=== PATIENT | female | born 1940 | race African-American/Black ===

== ENCOUNTER → 2017-05-17 | Outpatient (CLI) | payer OTHER ==
[~2017-05-17] MED LIST: ACETAMINOPHEN-120 ML PO; ACTICIN 5% CREA60 G1; ADULT LOW DOSE81 MG PO; CALCITRIOL0.25 MCG PO; CATAPRES PO; CATAPRES-TTS 10.1 MG PO; DOXYCYCLINE 10100 MG PO; EUCERIN CREME57 GM; HYDROCODONE-APA10 ML PO; IRON325 PO; LEVOTHYROXIN0.125 M1 PO; LIDOCAINE VISC100 M1; LISINOPRIL-HCT1 EAC1 PO; METHOTREXATE 22.5 MG PO; MOBIC15 MG PO; MUCINEX600 MG PO; NORCO 5-325 TA1 EACH PO; NORTHYX5 MG PO; REMICADE 1100 MG/VIA IV; SIMVASTATIN40 MG PO; TUMS PO; VALIUM5 MG PO; VENTOLIN17 GM INH; VITAMIN D 5050000 I1; ZPAK PO; [UNRECOGNIZED DRUG - OTHER]
--- NOTE | ~2017-05-17 | 2DMMODE ---
[facility] [address] [place] [address] 2 D/M-MODE ECHOCARDIOGRAM Name: MEGANKEVIN L Room #: REG [facility]#: [id number] Admission: 05/17/17 Attend Phys: Sushil Iraheta Discharge: Date of : 42 Date of Service: 05/17/17 1327 Report #: [id number] THIS REPORT FOR: //name// APPROVED REPORT Study performed: 05/17/2017 11:56:53 EXAM: Comprehensive 2D, Doppler, and color-flow Echocardiogram Patient Location: Out-Patient Status: routine Other Information Study Quality: Good Indications Palpitations 2D Dimensions RVDd: 30.61 mm LVEF(%): 66.79 (>50%) IVSd: 11.50 (7-11mm) LVOT Diam: 20.08 (18-24mm) LVDd: 40.59 mm PWd: 10.46 (7-11mm) Ascending Ao: 29.52 (22-36mm) LVDs: 25.77 (25-40mm) Aortic Root: 33.47 mm IVC: 1.70 mm Manriquez's LVEF: 66.79 % Volumes Left Atrial Volume (Systole) Single Plane 4CH: 73.09 mL Single Plane 2CH: 52.24 mL LA ESV Index: 32.00 mL/m2 Aortic Valve AoV Peak Sammy.: 1.56 m/s AO Peak Gr.: 9.67 mmHg LVOT Max P.53 mmHg LVOT Max V: 1.46 m/s CHARLINE Vmax: 2.97 cm2 Mitral Valve E/A Ratio: 0.6 MV Decel. Time: 393.31 ms MV E Max Sammy.: 0.50 m/s MV A Sammy.: 0.83 m/s MV PHT: 114.06 ms IVRT: 115.34 ms [facility] [address] 2 D/M-MODE ECHOCARDIOGRAM Name: KEVIN GUZMAN Room #: [facility]#: [id number] Admission: 05/17/17 Attend Phys: [facility] Discharge: Date of : 42 Date of Service: 05/17/17 1327 Report #: [id number] Pulmonary Valve PV Peak Sammy.: 0.73 m/s PV Peak Gr.: 2.11 mmHg Pulmonary Vein P Vein S: 0.68 m/s P Vein A: 0.37 m/s P Vein D: 0.26 m/s P Vein A Dur.: 133.8 msec P Vein S/D Ratio: 2.62 Tricuspid Valve TR Peak Sammy.: 2.47 m/s RAP Estimate: 5.00 mmHg TR Peak Gr.: 24.40 mmHg PA Pressure: 29.00 mmHg Left Ventricle The left ventricle is normal size. There is normal LV segmental wall motion. Mild concentric left ventricular hypertrophy. The left ventricular systolic function is normal. The left ventricular ejection fraction is within the normal range. LVEF is 60%. Grade I - abnormal relaxation pattern. Right Ventricle The right ventricle is normal size. The right ventricular systolic function is normal. Atria The left atrium size is normal. The right atrium size is normal. Aortic Valve Aortic valve is calcified. No aortic regurgitation is present. There is no aortic valvular stenosis. Mitral Valve The mitral valve is normal in structure. Trace mitral regurgitation. No evidence of mitral valve stenosis. Tricuspid Valve The tricuspid valve is normal in structure. There is trace tricuspid regurgitation. The right atrial pressure is estimated at 5 mmHg. There is no pulmonary hypertension with an estimated PAP of 29 mmHg. Pulmonic Valve The pulmonary valve is normal in structure. Trace pulmonic regurgitation. [facility] [address] [place] [address] 2 D/M-MODE ECHOCARDIOGRAM Name: KEVIN GUZMAN Branden Room #: REG CL [facility]#: [id number] Admission: 05/17/17 Attend Phys: Sushil Iraheta Discharge: Date of : 42 Date of Service: 05/17/17 1327 Report #: [id number] Great Vessels The aortic root is normal in size. IVC is normal in size and collapses >50% with inspiration. Pericardium There is no pericardial effusion. <Conclusion> The left ventricle is normal size. Mild concentric left ventricular hypertrophy. The left ventricular systolic function is normal. Grade I - abnormal relaxation pattern. The right ventricle is normal size. The left atrium size is normal. Aortic valve is calcified. There is no aortic valvular stenosis. Trace mitral regurgitation. There is no pulmonary hypertension with an estimated PAP of 29 mmHg. <ELECTRONICALLY SIGNED> By: Kalia Cruz MD 05/17/17 1327 26 26 Kalia Cruz MD /INF
== END ==
LOC: NUC 05-07 09:42
DX: I48.3 Typical atrial flutter (principal)

== ENCOUNTER → 2018-04-17 | Outpatient (CLI) | payer OTHER | LOC: RAD 11:21 | DX: Z12.31 Encounter for screening mammogram for malignant neoplasm of breast (principal) ==

== ENCOUNTER 2018-09-15 06:34 | Outpatient (CLI) | payer OTHER ==
[~2018-09-15] VITALS: Ht 172.7 cm; Wt 96.0 kg
[2018-09-15 07:06] VITALS: BP 177/107
[2018-09-15 07:13] LABS: BASOPHILS 0.8 % (0.0-2.0); EOSINOPHILS 3.6 % (0.0-3.0); HEMATOCRIT 38.8 % (37.0-47.0); HEMOGLOBIN 12.9 gm/dL (12.0-15.0); LYMPHOCYTES 31.4 % (24.0-44.0); MCH 30.1 pg (26.0-34.0); MCHC 33.1 g/dL (28.0-37.0); MCV 90.8 fL (80.0-100.0); MONOCYTES 6.6 % (1.0-8.0); PLATELET COUNT 117 thou/uL (150-400); POLYS 57.6 % (36.0-66.0); RBC 4.28 mil/uL (4.20-5.00); RDW 14.7 % (10.5-14.5); WBC 5.3 thou/uL (4.0-11.0)
[2018-09-15 07:22] LABS: CALCIUM 9.4 mg/dL (8.5-10.1); CREATININE 1.2 mg/dL (0.6-1.0)
[2018-09-15 07:27] LABS: ALBUMIN 3.4 g/dL (3.4-5.0); TOTAL BILIRUBIN 0.5 mg/dL (<0.1-1.0); TOTAL PROTEIN 8.4 g/dL (6.4-8.2)
[2018-09-15 07:32] LABS: APTT 27.6 Seconds (24.5-32.8); PROTIME 10.8 Seconds (9.3-11.4)
[2018-09-15 16:45] VITALS: BP 179/88
[2018-09-15 17:45] VITALS: BP 180/89
[2018-09-15 18:45] VITALS: BP 180/89
[2018-09-15 19:44] VITALS: BP 141/71
[2018-09-16 04:36] VITALS: BP 179/95
[2018-09-16 07:21] VITALS: BP 184/131
[2018-09-16 07:28] VITALS: BP 178/91
[2018-09-16] MEDS ORDERED: AMLODIPINE BESYL5 M1 PO (09:45)
[2018-09-16 10:44] VITALS: BP 178/91
== END 2018-09-16 11:02 | disposition home or self-care (01) ==
LOC: CATH 06:34 → 2N 16:00 → ENTRNSPT 09-16 10:51 → EDTRNSPTSTS 09-16 10:54 → CATH 09-16 11:02
PROVIDERS: Internal Medicine Cardiovascular Disease
DX: I47.1 Supraventricular tachycardia (principal); I10 Essential (primary) hypertension; Z79.82 Long term (current) use of aspirin; Z79.899 Other long term (current) drug therapy; Z79.01 Long term (current) use of anticoagulants
CPT/HCPCS: 10081; 62110; 62900; 70005

== ENCOUNTER → 2019-06-17 | Outpatient (CLI) | payer OTHER ==
[~2019-06-17] MED LIST changes: +AMLODIPINE BESYL5 M1 PO
--- NOTE | 2019-06-17 14:45 | 2DMMODE ---
[facility] [place] [address] 2 D/M-MODE ECHOCARDIOGRAM Name: KEVIN GUZMAN Room #: REG [facility]#: [id number] Admission: 06/17/19 Attend Phys: Sushil Iraheta Discharge: Date of : 42 Date of Service: 06/17/19 1445 Report #: [id number] THIS REPORT FOR: //name// APPROVED REPORT Study performed: 06/17/2019 13:30:49 EXAM: Comprehensive 2D, Doppler, and color-flow Echocardiogram Patient Location: Out-Patient Room #: Echo lab 2 Status: routine BSA: 2.15 HR: 57 bpm BP: 136/82 mmHg Rhythm: Bradycardia Other Information Study Quality: Good Indications Arrhythmia Hypertension/HDD Left Ventricle The left ventricle is normal size. Regional wall motion is normal. Moderate concentric left ventricular hypertrophy. The left ventricular systolic function is normal. The left ventricular ejection fraction is within the normal range. LVEF is 65-70%. Grade I - abnormal relaxation pattern. Right Ventricle The right ventricle is normal size. The right ventricular systolic function is normal. Atria Left atrium is dilated. Right atrium is at the upper limits of normal. The right atrium size is normal. Aortic Valve The aortic valve is normal in structure. No aortic regurgitation is present. There is no aortic valvular stenosis. Mitral Valve The mitral valve is normal in structure. Mild mitral regurgitation. No evidence of mitral valve stenosis. [facility] [address] [place] [address] 2 D/M-MODE ECHOCARDIOGRAM Name: KEVIN GUZMAN Room #: REG [facility]#: [id number] Admission: 06/17/19 Attend Phys: Sushil Iraheta Discharge: Date of : 42 Date of Service: 06/17/19 1445 Report #: [id number] Tricuspid Valve The tricuspid valve is normal in structure. There is trace to mild tricuspid regurgitation. Estimated PAP 28 mmHg. There is no pulmonary hypertension. Pulmonic Valve The pulmonary valve is normal in structure. Trace pulmonic regurgitation. Great Vessels The aortic root is normal in size. IVC is normal in size and collapses >50% with inspiration. Pericardium There is no pericardial effusion. <Conclusion> The left ventricle is normal size. LVEF is 65-70%. Left atrium is dilated. The aortic valve is normal in structure. The mitral valve is normal in structure. Mild mitral regurgitation. The tricuspid valve is normal in structure. There is trace to mild tricuspid regurgitation. Estimated PAP 28 mmHg. There is no pulmonary hypertension. The pulmonary valve is normal in structure. Trace pulmonic regurgitation. There is no pericardial effusion. <ELECTRONICALLY SIGNED> By: Sanjay Kulkarni MD 06/17/19 1445 1445 1445 Sanjay Kulkarni MD /INF
== END ==
LOC: CV 13:09
DX: I08.1 Rheumatic disorders of both mitral and tricuspid valves (principal); I10 Essential (primary) hypertension

== ENCOUNTER → 2019-12-15 | Outpatient (CLI) | payer OTHER | LOC: SJCVC 11:27 | DX: I49.3 Ventricular premature depolarization (principal); R94.31 Abnormal electrocardiogram [ECG] [EKG]; I11.9 Hypertensive heart disease without heart failure; I47.1 Supraventricular tachycardia; E11.9 Type 2 diabetes mellitus without complications; E78.5 Hyperlipidemia, unspecified; E55.9 Vitamin D deficiency, unspecified; E89.0 Postprocedural hypothyroidism; Z79.899 Other long term (current) drug therapy ==

== ENCOUNTER 2020-03-04 09:19 | Emergency (ER) | payer OTHER ==
[~2020-03-04] VITALS: Ht 172.7 cm; Wt 99.8 kg
[2020-03-04] MEDS ORDERED: ERGOCALCIF50000 UNIT PO (09:30)
[2020-03-04] MEDS ORDERED: LOPRESSOR50 PO (09:30)
[2020-03-04] MEDS ORDERED: NORCO 10-325 T1 EACH PO (09:31)
[2020-03-04 09:55] LABS: ABSOLUTE NEUTROPHILS 2.9 thou/uL (1.4-8.2); BASOPHILS 0.8 % (0.0-2.0); EOSINOPHILS 4.4 % (0.0-3.0); HEMATOCRIT 38.5 % (37.0-47.0); HEMOGLOBIN 13.1 gm/dL (12.0-15.0); LYMPHOCYTES 17.9 % (24.0-44.0); MCH 30.3 pg (26.0-34.0); MCHC 33.9 g/dL (28.0-37.0); MCV 89.6 fL (80.0-100.0); MONOCYTES 10.4 % (1.0-8.0); POLYS 66.5 % (36.0-66.0); RDW 14.4 % (10.5-14.5); WBC 4.3 thou/uL (4.0-11.0)
[2020-03-04 10:05] LABS: ANION GAP 8 mmol/L (7-16); BUN 28 mg/dL (7-18); CALCIUM 8.8 mg/dL (8.5-10.1); CHLORIDE 103 mmol/L (98-107); CO2 27 mmol/L (21-32); CREATININE 1.3 mg/dL (0.6-1.0); GLUCOSE 145 mg/dL (74-106); POTASSIUM 3.8 mmol/L (3.5-5.1); SODIUM 138 mmol/L (136-145)
[2020-03-04 10:15] LABS: ALBUMIN 3.7 g/dL (3.4-5.0); MAGNESIUM 2.1 mg/dL (1.8-2.4); SGOT 37 U/L (15-37); SGPT 28 U/L (30-65); TOTAL BILIRUBIN 0.5 mg/dL (<0.1-1.0); TOTAL PROTEIN 8.6 g/dL (6.4-8.2); TROPONIN-I <0.06 ng/mL (<0.06)
--- NOTE | 2020-03-04 11:37 | EKG ---
[facility] [place] [address] ELECTROCARDIOGRAM REPORT Name: KEVIN GUZMAN Room #: REG [facility]#: [id number] Admission: 03/04/20 Attend Phys: Discharge: Date of : 42 Report #: [id number] THIS REPORT FOR: cc: Kai Whalen MD, Eric K. MD Couchonnal, Luis F. MD ~ THIS REPORT FOR: //name// [facility] ED Test Date: 2020-03-04 Test Time: 09:29:33 Pat Name: KEVIN GUZMAN Department: Room: Gender: F Dinkey Operator Slate: evon : 1940 Requested By: Aries Hoang Order Number: [id number] MD: Sushil Iraheta Measurements Intervals Sebastian Rate: 67 P: 1 NV: 180 QRS: 37 QRSD: 84 T: -59 QT: 411 QTc: 434 Interpretive Statements Sinus rhythm Compared to ECG 02/05/2012 10:39:19 Electronically Signed On 03-04-2020 11:35:04 CDT by Sushil Iraheta [email or web address] <ELECTRONICALLY SIGNED> By: Sushil Iraheta MD 03/04/20 1135 8 8 Sushil Iraheta MD /YANY
[2020-03-04 11:55] LABS: PLATELET COUNT 92 thou/uL (150-400)
[2020-03-04 12:53] VITALS: BP 161/90
== END 2020-03-04 13:01 | disposition home or self-care (01) ==
LOC: ER 09:19
PROVIDERS: Emergency Medicine
DX: R00.2 Palpitations (principal); I10 Essential (primary) hypertension; E11.9 Type 2 diabetes mellitus without complications; E78.5 Hyperlipidemia, unspecified; M06.9 Rheumatoid arthritis, unspecified; Z90.710 Acquired absence of both cervix and uterus; Z96.653 Presence of artificial knee joint, bilateral; Z90.49 Acquired absence of other specified parts of digestive tract

== ENCOUNTER → 2020-03-17 | Outpatient (CLI) | payer OTHER ==
[~2020-03-17] MED LIST changes: +ERGOCALCIF50000 UNIT PO; +LOPRESSOR50 PO; +NORCO 10-325 T1 EACH PO
== END ==
LOC: SJCVC 16:35
DX: I11.9 Hypertensive heart disease without heart failure (principal); R94.31 Abnormal electrocardiogram [ECG] [EKG]; I47.1 Supraventricular tachycardia; E11.9 Type 2 diabetes mellitus without complications; E78.5 Hyperlipidemia, unspecified; Z79.82 Long term (current) use of aspirin; Z79.899 Other long term (current) drug therapy

== ENCOUNTER → 2020-03-29 | Outpatient (CLI) | payer OTHER ==
[~2020-03-29] MED LIST changes: +METOPROLOL TART25 MG PO; +PROLIA60 MG/1 ML SUBQ; +TAMBOCOR 100 M100 M1 PO
== END ==
LOC: LAB 13:09
PROVIDERS: ATTEND Internal Medicine Cardiovascular Disease
DX: Z01.818 Encounter for other preprocedural examination (principal); Z11.59 Encounter for screening for other viral diseases

== ENCOUNTER 2020-04-01 06:43 | Outpatient (CLI) | payer OTHER ==
[~2020-04-01] VITALS: Ht 172.7 cm; Wt 95.8 kg
[~2020-04-01 06:43] MED LIST changes: -METOPROLOL TART25 MG PO; -PROLIA60 MG/1 ML SUBQ; -TAMBOCOR 100 M100 M1 PO
[2020-04-01 07:21] VITALS: BP 165/75
[2020-04-01 07:22] LABS: HEMATOCRIT 37.1 % (37.0-47.0); HEMOGLOBIN 12.2 gm/dL (12.0-15.0); MCH 30.3 pg (26.0-34.0); MCHC 32.9 g/dL (28.0-37.0); PLATELET COUNT 111 thou/uL (150-400); RBC 4.04 mil/uL (4.20-5.00); RDW 16.1 % (10.5-14.5); WBC 6.2 thou/uL (4.0-11.0)
[2020-04-01 07:32] LABS: APTT 26.8 Seconds (24.5-32.8); PROTIME 10.5 Seconds (9.3-11.4)
[2020-04-01 07:36] LABS: CALCIUM 8.8 mg/dL (8.5-10.1); CREATININE 1.2 mg/dL (0.6-1.0)
[2020-04-01 07:43] LABS: ALBUMIN 3.4 g/dL (3.4-5.0); TOTAL BILIRUBIN 0.5 mg/dL (0.2-1.0); TOTAL PROTEIN 7.8 g/dL (6.4-8.2)
[2020-04-01] MEDS ORDERED: PROLIA60 MG/1 ML SUBQ (07:46)
[2020-04-01 07:49] LABS: ABSOLUTE NEUTROPHILS 3.5 thou/uL (1.4-8.2); PLATELET ESTIMATE NORMAL
[2020-04-01 15:15] VITALS: BP 145/76
[2020-04-01] MEDS ORDERED: METOPROLOL TART25 MG PO (15:24)
[2020-04-01] MEDS ORDERED: TAMBOCOR 100 M100 M1 PO (15:24)
--- NOTE | 2020-04-01 15:54 | P ---
[facility] [place] [address] PROCEDURE REPORT Name: KEVIN GUZMAN [id number] Admission: 04/01/20 Attend Phys: Sushil Iraheta MD Discharge: Date of : 42 Report #: [id number] THIS REPORT FOR: cc: Kai Whalen MD, Eric K. MD Couchonnal, Luis F. MD ~ CC: Kai Iraheat DATE OF SERVICE: 04/01/2020 PREOPERATIVE DIAGNOSIS: Atrial tachycardia. POSTOPERATIVE DIAGNOSES: 1. Atrial tachycardia. 2. Typical atrial flutter. 3. Atrial fibrillation. PROCEDURES PERFORMED: 1. Supraventricular tachycardia ablation, CPT code 11741. 2. EP with left atrial pacing and recording, CPT code 18302. 3. Program and stimulation pacing after IV drug infusion, CPT code 61845. 4. Intracardiac echo, CPT code 58742. 5. 3D mapping, CPT code 58461. 6. Second pathway ablation, CPT code 95230. HISTORY: The patient is a 80-year-old who underwent ablation of an atrial tachycardia arising from 9 o'clock along the tricuspid annulus back in 09/15/2018. Recently, she is in the Emergency Room with palpitations and near syncope. 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 She is here for repeat EP study and ablation. ANESTHESIA: The patient underwent MAC anesthesia with no anesthesia related complications. DESCRIPTION OF PROCEDURE: The patient underwent informed consent. We discussed the details of the procedure including the risks, which include but not limited to bleeding, vascular damage, cardiac perforation, stroke, [place] as well as damage to the campo conduction system requiring permanent pacemaker. She understood these risks and is willing to proceed. The patient was brought to EP laboratory in fasting and sedated state, prepped and draped in a sterile fashion. I obtained access in the bilateral femoral veins and in the right femoral vein, I placed an 8 and two 6-Azerbaijani short sheaths in the left femoral vein, I placed a 7 and 9-Azerbaijani short sheath using [facility] [address] [place] [address] PROCEDURE REPORT Name: KEVIN GUZMAN Room #: 205-P [facility].#: [id number] Admission: 04/01/20 Attend Phys: Sushil Iraheta MD Discharge: Date of : 42 Report #: [id number] the modified Seldinger technique. Next, under fluoroscopy, I placed 3 quadripolar catheters at the HRA, His and RV positions and a Decapolar catheter easily in the coronary sinus and ICE catheter was placed in the right atrium for 3D mapping. Basic EP study was performed. At baseline, the patient was in sinus rhythm with sinus cycle length of 1120 milliseconds, WY interval 180 milliseconds, QRS duration 90 milliseconds, QT interval 460 milliseconds, AH interval 115 milliseconds, HV interval 39 milliseconds. Next, atrial burst pacing was performed and AV block was noted at 340 milliseconds. Atrial ERP was noted at 230 milliseconds at a [address] cycle length. Ventricular burst pacing was performed and VA block was noted at 360 milliseconds. Ventricular ERP was noted at 290 milliseconds at a [address] cycle length. VA conduction was both midline and decremental. Next, isoproterenol infusion was initiated at 2 mcg per minute and atrial and ventricular pacing maneuvers were performed. The patient did have a spontaneous episode of SVT that appeared to be an atrial tachycardia with an upright P-wave in the inferior leads in the cycle length that was 290 milliseconds. This spontaneously terminated on its own. I was able to induce atrial tachycardia with single atrial extrastimuli. 3D MAPPING AND ABLATION OF ATRIAL TACHYCARDIA: Next, an activation map of this atrial tachycardia was created, this was somewhat challenging as the tachycardia would terminate after re-induce it and at times, the patient would go into atrial fibrillation would require cardioversion of this. The atrial tachycardia appeared to be arising from an anterior septal location about 18 mm above the His cloud. Ablation was performed here at 35 carrion using a SmartTouch ThermoCool ablation catheter and an Agilis sheath. A sheath was required as I was very close to His and it would fall into the His bundle region without the sheath. Ablation at this site resulted in bursts of atrial fibrillation and atrial tachycardia that would self-terminate. ABLATION OF TYPICAL ATRIAL FLUTTER: Next, while we were mapping the atrial tachycardia, the patient did go into AFib several times and then once went into typical atrial flutter. I did map this using the PentaRay catheter and showed counterclockwise typical atrial flutter. We therefore performed ablation at 6 o'clock along the cavotricuspid isthmus at 45 carrion and I performed a continuous drag lesion. Initially, there was not block, but then using the Agilis sheath, I was able to achieve block by getting better catheter stabilization at the posterior segment of the isthmus. Of note, there was a pretty deep pouch here noted using intracardiac ultrasound. Pre-ablation, the transisthmus conduction time was 55 milliseconds and post-ablation, it was 160 milliseconds. Post-ablation, the patient remained in sinus rhythm. As noted above, we did have to perform 6 cardioversions throughout the procedure to restore sinus rhythm. Using intracardiac ultrasound, I verified there was no pericardial effusion. As such, the procedure was concluded. Catheters and sheaths were [facility] [address] [place] [address] PROCEDURE REPORT Name: KEVIN GUZMAN Branden [facility]: [facility] [id number] Admission: 04/01/20 Attend Phys: Sushil Iraheta MD Discharge: Date of : 42 Report #: [id number]. Hemostasis was obtained. The patient awoke neurologically and hemodynamically intact. No complications and no significant bleeding. CONCLUSIONS: 1. Successful atrial tachycardia ablation arising from the anterior septal region of the right atrium 17 mm above the His region. 2. Successful atrial flutter ablation with evidence of bidirectional block. 3. Frequent episodes of atrial fibrillation requiring DC cardioversion. PLAN: The patient will be monitored in the CCU overnight, she will be initiated on flecainide therapy 100 b.i.d. We will need to monitor for recurrence of AFib or other forms of atrial arrhythmias in the future. <ELECTRONICALLY SIGNED> By: Sushil Iraheta MD 04/01/20 1554 1142 1226 Sushil Iraheta MD /nt
[2020-04-01 16:00] VITALS: BP 165/96
[2020-04-01 19:40] VITALS: BP 116/60
[2020-04-01 19:56] VITALS: BP 175/84
--- NOTE | 2020-04-01 20:03 | NUR ---
PT ARRIVED TO UNIT AT APPROX 1530. VSS. BP ELEVATED. COTTON SAMPLER NOTIFIED. ORDERS RECEIVED. PT ALERT AND ORIENTED. RT AND LEFT GROIN SITES CDI, NO HEMATOMA. BR CONTINUED FOR 6 HOURS. PT TOLERATING WELL. SON VISITED WITH PT. POST OP VS INITIATED. PT SR ON MONITOR. SHORT RUN SVT- CARDIOLOGY NOTIFIED. PT RESTING NO NEEDS/CONCERNS. ADMISSION INCOMPLETE- MT BAKER NOTIFIED, REPORT GIVEN TO MT NEIL.
[2020-04-01 23:30] VITALS: BP 124/69
--- NOTE | 2020-04-02 03:31 | NUR ---
OFF BEDREST AT THE BEGINNING OF THE SHIFT.ABLE TO VOID AT THE BEDSIDE COMMODE.DENIES PAIN AND SOB.RIGHT AND LEFT GROIN SITE C/D/I.MONITOR SHOWS SINUS ARRHYTHMIA.POC CONTINUED.
[2020-04-02 04:11] VITALS: BP 137/67
[2020-04-02 07:40] VITALS: BP 141/89
[2020-04-02 10:00] VITALS: BP 137/67
--- NOTE | 2020-04-02 10:33 | NUR ---
DR. HAGAN DISCHARGING PATIENT. VSS. NO C/O. GROIN SITES CDI. SR WITH OCCASIONAL PVCS PER TELE, DR. HAGAN AWARE, TAMBOCAR PRESCRIBED. DISCHARGE INSTRUCIONS GIVEN. SHE WILL LEAVE WITH ADULT SON.
--- NOTE | 2020-04-12 16:00 | D ---
[facility] [place] [address] DISCHARGE SUMMARY Name: KEVIN GUZMAN Room #: DEP G[facility]#: [id number] Admission: 04/01/20 Attend Phys: Sushil Iraheta MD Discharge: 04/02/20 Date of : 42 Report #: [id number] THIS REPORT FOR: cc: Kai Whalen MD, Eric K. MD Couchonnal, Luis F. MD ~ THIS REPORT FOR: //name// CC: Kai Iraheta DISCHARGE DIAGNOSES: 1. Atrial tachycardia. 2. Typical atrial flutter. 3. Atrial fibrillation. HISTORY OF PRESENT ILLNESS: The patient is a 80-year-old whom I performed SVT ablation back in 09/2018 for an atrial tachycardia arising from the tricuspid annulus. She recently had a recurrence of SVT. She underwent EP study yesterday, she was found to have a new atrial tachycardia that was arising from the right atrium at the high right atrium approximately 18 mm above the His bundle. Ablation here was successful. The patient also had evidence of multiple other arrhythmias including periods of atrial fibrillation and typical atrial flutter. The patient did undergo successful atrial flutter ablation with bidirectional block. Of note, during the procedure, she had to be cardioverted out of AFib 6 times. The procedure was without complications. HOSPITAL COURSE: The patient was monitored in the CCU overnight and she was started on flecainide 100 mg b.i.d. due to her multiple atrial arrhythmias, which are likely related to her rheumatoid arthritis. Her beta-marc dose was decreased. The patient did well overnight. She did have a couple episodes of SVT with aberration, which we did see during the ablation. She denied any chest pain, shortness of breath. PHYSICAL EXAMINATION HEART: Regular rate and rhythm. LUNGS: Clear to auscultation bilaterally. GENITOURINARY: Groins appear to be healing nicely. As such, she was deemed stable for discharge home. She will continue on flecainide 100 b.i.d. We will lower her beta-marc dose. We will place her on an aspirin therapy. She does not need anticoagulation as we have not seen clinical atrial fibrillation in real world setting. I will have her see my [address] [address] DISCHARGE SUMMARY Name: KEVIN GUZMAN Room #: DEP [facility]#: [id number] Admission: 04/01/20 Attend Phys: Sushil Iraheta MD Discharge: 04/02/20 Date of : 42 Report #: [id number] nurse practitioner in 2 weeks to check her rhythm and I will see her in the office in 3 months. <ELECTRONICALLY SIGNED> By: Sushil Iraheta MD 04/12/20 1600 0956 1002 Sushil Iraheta MD /nt
== END 2020-04-02 10:54 | disposition home or self-care (01) ==
LOC: CATH 06:43 → 2N 15:19 → CATH 04-02 10:54
PROVIDERS: ATTEND Internal Medicine Cardiovascular Disease
DX: I47.1 Supraventricular tachycardia (principal); I48.91 Unspecified atrial fibrillation; I48.92 Unspecified atrial flutter; I10 Essential (primary) hypertension; E11.9 Type 2 diabetes mellitus without complications; M06.9 Rheumatoid arthritis, unspecified; E78.5 Hyperlipidemia, unspecified; G47.00 Insomnia, unspecified; Z98.890 Other specified postprocedural states; Z79.899 Other long term (current) drug therapy; Z96.653 Presence of artificial knee joint, bilateral; Z79.82 Long term (current) use of aspirin; Z79.01 Long term (current) use of anticoagulants
CPT/HCPCS: 10081; 62110; 62900; 70005

== ENCOUNTER → 2020-04-19 | Outpatient (CLI) | payer OTHER ==
[~2020-04-19] MED LIST changes: +METOPROLOL TART25 MG PO; +PROLIA60 MG/1 ML SUBQ; +TAMBOCOR 100 M100 M1 PO
== END ==
LOC: SJCVC 10:52
PROVIDERS: ATTEND Internal Medicine Infectious Disease
DX: R94.31 Abnormal electrocardiogram [ECG] [EKG] (principal); I44.7 Left bundle-branch block, unspecified; I44.0 Atrioventricular block, first degree; I47.1 Supraventricular tachycardia; I48.91 Unspecified atrial fibrillation; Z79.899 Other long term (current) drug therapy

== ENCOUNTER → 2020-07-12 | Outpatient (CLI) | payer OTHER | LOC: SJCVC 09:07 | PROVIDERS: ATTEND Internal Medicine Cardiovascular Disease | DX: I21.29 ST elevation (STEMI) myocardial infarction involving other sites (principal); I47.1 Supraventricular tachycardia ==

== ENCOUNTER → 2021-02-21 | Outpatient (CLI) | payer OTHER, BC | LOC: SJCVC 13:54 | PROVIDERS: ATTEND Internal Medicine Cardiovascular Disease | DX: R94.31 Abnormal electrocardiogram [ECG] [EKG] (principal); I47.1 Supraventricular tachycardia; I10 Essential (primary) hypertension; E78.5 Hyperlipidemia, unspecified; E11.9 Type 2 diabetes mellitus without complications; E55.9 Vitamin D deficiency, unspecified; M06.9 Rheumatoid arthritis, unspecified; M10.9 Gout, unspecified; Z98.890 Other specified postprocedural states; Z79.82 Long term (current) use of aspirin; Z79.899 Other long term (current) drug therapy ==

== ENCOUNTER → 2021-08-21 | Outpatient (CLI) | payer OTHER, BC | LOC: SJCVC 11:27 | PROVIDERS: ATTEND Internal Medicine Cardiovascular Disease | DX: Z79.899 Other long term (current) drug therapy (principal); E11.40 Type 2 diabetes mellitus with diabetic neuropathy, unspecified; E78.5 Hyperlipidemia, unspecified; I10 Essential (primary) hypertension; E11.9 Type 2 diabetes mellitus without complications; E05.90 Thyrotoxicosis, unspecified without thyrotoxic crisis or storm; Z79.82 Long term (current) use of aspirin; Z79.891 Long term (current) use of opiate analgesic ==

== ENCOUNTER → 2021-08-23 | Outpatient (CLI) | payer OTHER, BC | LOC: SJCVC 12:55 | PROVIDERS: ATTEND Internal Medicine Cardiovascular Disease | DX: R94.31 Abnormal electrocardiogram [ECG] [EKG] (principal); I11.9 Hypertensive heart disease without heart failure; I47.1 Supraventricular tachycardia; E11.42 Type 2 diabetes mellitus with diabetic polyneuropathy; E78.5 Hyperlipidemia, unspecified; Z79.82 Long term (current) use of aspirin; Z79.899 Other long term (current) drug therapy ==